=== PATIENT | female | born 1970 | race Caucasian/White ===

== ENCOUNTER → 2021-05-07 | Outpatient (CLI) | payer BC ==
[2021-05-08 08:13] LABS: HBSAG SCREEN Negative (Negative); HCV AB 0.2 (0.0-0.9); HEP B CORE AB, TOT Negative (Negative); RHEUMATOID ARTHRITIS FACTOR <10.0 IU/mL (0.0-13.9); VITAMIN D, 25-HYDROXY 14.6 ng/mL (30.0-100.0)
== END ==
LOC: RAD 11:24
PROVIDERS: Nurse Practitioner Family
DX: Z11.59 Encounter for screening for other viral diseases (principal); M79.643 Pain in unspecified hand; M25.551 Pain in right hip; D89.9 Disorder involving the immune mechanism, unspecified; R76.8 Other specified abnormal immunological findings in serum; R53.83 Other fatigue; M79.10 Myalgia, unspecified site; Z79.899 Other long term (current) drug therapy; M19.042 Primary osteoarthritis, left hand; M19.041 Primary osteoarthritis, right hand
CPT/HCPCS: 36415; 73130; 73502; 82550; 82728; 83520; 85652; 86140; 86200; 86431; 86704; 86803; 87340